=== PATIENT | female | born 1980 | race Caucasian/White ===

== ENCOUNTER 2016-05-12 13:25 | Emergency (ER) | payer MEDICAID ==
[2016-05-12 13:33] VITALS: BMI 26.2
[2016-05-12 13:35] VITALS: RESP 16; TEMP 97.6
--- NOTE | 2016-05-12 13:39 | C.PDOC ---
History Of Present Illness 35F c/o intermittent non-exertional mid-sternal chest pain over her scar for the last 2 days, lasting 20 to 30 minutes at a time. worse w deep breathing and lying flat. same as pain she was seen here for a year ago- found to have flutter at that time and [place] [facility] [place]. had open heart surgery for congenital defect in 2002. denies smoking. no NC in parents. no recent surgery, trauma, immob. she also reports recent cold-like sx. Time Seen by Provider: 05/12/16 13:38 Chief Complaint (Nursing): Chest Pain Past Medical History Vital Signs: Last Vital Signs Temp 97.6 F 05/12/16 13:34 Pulse 52 L 05/12/16 14:23 Resp 16 05/12/16 14:23 BP 110/56 L 05/12/16 14:23 Pulse Ox 98 05/12/16 15:02 - Medical History PMH: Denies: Atrial Fibrillation, Cardia Arrhythmia, CHF, HTN, Hypercholesterolemia, Mitral Valve Prolapse, Peripheral Edema, Chronic Kidney Disease Surgical History: Denies: Pacemaker Family History: Denies: [place] - Social History Hx Alcohol Use: No Hx Substance Use: No - Immunization History Hx Tetanus Toxoid Vaccination: No Hx Influenza Vaccination: No Hx Pneumococcal Vaccination: No Review Of Systems Constitutional: Negative for: Fever, Chills ENT: Positive for: Nose Congestion Cardiovascular: Positive for: Chest Pain. Negative for: Palpitations Respiratory: Positive for: Cough (dry), Shortness of Breath ("only a little"). Negative for: Sputum Gastrointestinal: Negative for: Nausea, Vomiting, Abdominal Pain Genitourinary: Negative for: Dysuria Neurological: Negative for: Weakness, Numbness, Headache Physical Exam - Physical Exam Appears: Well, Non-toxic, No Acute Distress Skin: Warm, Dry Head: Atraumatic Eye(s): bilateral: PERRL Oral Mucosa: Moist Chest: No Subcutaneous Emphysema, Other (reproducible pain w palpation over midline sternal scar) Cardiovascular: Rhythm Regular, No Edema, No Murmur Respiratory: No Decreased Breath Sounds, No Accessory Muscle Use, No Rales, No Rhonchi, No Stridor, No Wheezing Gastrointestinal/Abdominal: Soft, No Tenderness Extremity: No Calf Tenderness, No Swelling Pulses: Left Radial: Normal, Right Radial: Normal Neurological/Psych: Oriented x3, Normal Motor, Normal Sensation, Other (no focal deficits) ED Course And Treatment - Laboratory Results Result Diagrams: 05/12/16 14:17 05/12/16 14:17 O2 Sat by Pulse Oximetry: 98 - Radiology CXR: Interpreted by Me (bibasilar atelectasis. Unchanged from prior: 10/26/14), Viewed By Me Medical Decision Making Medical Decision Making: ecg- sinus fredrick 54, nl axis, nl int, no acute ischemia 1500 the pt says her pain is resolved. I disc her results and advised repeat trop in 3 hours which is often done for low risk chest pain. however she wishes to be dc at this time. she already has an appt w her hr representative this week. will return if worse. Disposition - Disposition Disposition: HOME/ ROUTINE Disposition Time: 15:00 Condition: IMPROVED Additional Instructions: Please follow up with your doctor and hr representative. Return to the ER for any worsening symptoms or for any other concerns. Prescriptions: Naproxen 500 mg PO Q12H PRN #8 tab PRN Reason: Pain, Moderate (4-7) Instructions: Chest Pain (ED) Forms: Gen Discharge Inst French Print Language: SOUTH KOREAN - Clinical Impression Clinical Impression: Chest pain
[2016-05-12 14:22] LABS: BASO # 0.1 K/uL (0.0-0.2); BASO % 1.2 % (0.0-2.0); EOS # 0.4 K/uL (0.0-0.7); EOS % 6.3 % (0.0-4.0); HEMATOCRIT 37.6 % (34.0-47.0); LYMPH # 2.6 K/uL (1.0-4.3); LYMPH % 42.7 % (20.0-40.0); MEAN CELL VOLUME 92.3 fL (81.0-99.0); MEAN CORPUSCULAR HEMOGLOBIN 31.6 pg (27.0-31.0); MEAN CORPUSCULAR HGB CONC 34.3 g/dL (33.0-37.0); MEAN PLATELET VOLUME 9.8 fL (7.2-11.7); MONO # 0.4 K/uL (0.0-0.8); MONO % 6.4 % (0.0-10.0); RED CELL DISTRIBUTION WIDTH 12.9 % (11.5-14.5); WHITE BLOOD COUNT 6.2 K/uL (4.8-10.8)
[2016-05-12 14:24] VITALS: BP 110/56; PULSE 52
[2016-05-12 14:29] LABS: CHLORIDE 101 mmol/L (98-107); SODIUM 141 mmol/L (132-148)
[2016-05-12 14:30] LABS: POTASSIUM 3.9 mmol/L (3.6-5.2)
[2016-05-12 14:32] LABS: ALB/GLOB RATIO 1.4 (1.0-2.1); ALKALINE PHOSPHATASE 48 U/L (38-126); ALT/SGPT 36 U/L (9-52); AST/SGOT 44 U/L (14-36); BILIRUBIN,TOTAL 0.4 mg/dL (0.2-1.3); BLOOD UREA NITROGEN 10 mg/dL (7-17); CARBON DIOXIDE 25 mmol/L (22-30); GFR AFRICAN-AMERICAN > 60; GLUCOSE,RANDOM 96 mg/dL (65-105)
[2016-05-12 14:33] LABS: CALCIUM 8.6 mg/dl (8.6-10.4)
[2016-05-12 14:53] VITALS: O2SAT 98
--- NOTE | 2016-05-12 16:40 | RAD ---
HISTORY: cp COMPARISON: 10/26/2014 TECHNIQUE: Chest PA and lateral FINDINGS: LUNGS: No active pulmonary disease. PLEURA: No significant pleural effusion identified. No pneumothorax apparent. CARDIOVASCULAR: Normal. OSSEOUS STRUCTURES: No significant abnormalities. VISUALIZED UPPER ABDOMEN: Normal. OTHER FINDINGS: None. IMPRESSION: No active disease.
--- NOTE | 2016-05-13 16:26 | CARD ---
APPROVED REPORT EKG Measurement Heart [id number] <Conclusion> Sinus bradycardia Otherwise normal ECG
== END 2016-05-12 15:13 | disposition home or self-care (01) ==
LOC: C.ER 13:25
DX: R07.9 Chest pain, unspecified (principal)
CPT/HCPCS: 71020; 80053; 84484; 85025; 85378; 93005; 96374; 99284; J1885

== ENCOUNTER 2017-09-14 00:30 | Emergency (ER) | payer MEDICAID ==
[2017-09-14 00:30] VITALS: BMI 26.2
[2017-09-14] MEDS ORDERED: Aspirin 325 mg EC Tablets PO STA (00:47)
--- NOTE | 2017-09-14 00:47 | C.PDOC ---
History Of Present Illness 36 year old female presents to emergency department with complaints of left chest pain for the last three days radiating up to her left shoulder and down her left arm. She denies any fever or chills. Pain is reproducible on palpation Time Seen by Provider: 09/14/17 00:47 Chief Complaint (Nursing): Chest Pain History Per: Patient History/Exam Limitations: no limitations Onset/Duration Of Symptoms: Days (3) Current Symptoms Are (Timing): Still Present Severity: Mild Pain Scale Rating Of: 3 Quality: Dull, Aching Modifying Factors: None Exacerbating Factors: None Alleviating Factors: None Recent travel outside of the [place]: No Additional History Per: Patient Past Medical History Reviewed: Historical Data, Nursing Documentation, Vital Signs Vital Signs: Last Vital Signs Temp 97.6 F 09/14/17 00:52 Pulse 55 L 09/14/17 02:22 Resp 16 09/14/17 02:22 BP 99/62 L 09/14/17 02:22 Pulse Ox 98 09/14/17 02:22 - Medical History PMH: Cardia Arrhythmia, HTN, Hyperlipidemia Denies: Atrial Fibrillation, CHF, Hypercholesterolemia, Mitral Valve Prolapse , Peripheral Edema, Chronic Kidney Disease Surgical History: No Surg Hx Denies: Pacemaker Family History: States: No Known Family Hx Denies: [place] - Social History Hx Alcohol Use: No Hx Substance Use: No - Immunization History Hx Tetanus Toxoid Vaccination: No Hx Influenza Vaccination: No Hx Pneumococcal Vaccination: No Review Of Systems Constitutional: Negative for: Fever, Chills Eyes: Negative for: Vision Change ENT: Negative for: Throat Pain Cardiovascular: Positive for: Chest Pain Respiratory: Negative for: Shortness of Breath Gastrointestinal: Negative for: Nausea Genitourinary: Negative for: Dysuria Musculoskeletal: Positive for: Shoulder Pain (left), Arm Pain (left) Skin: Negative for: Rash Neurological: Negative for: Weakness Psych: Negative for: Anxiety Physical Exam - Physical Exam Appears: Non-toxic, No Acute Distress Skin: Warm, Dry Head: Normacephalic Eye(s): bilateral: Normal Inspection Oral Mucosa: Moist Throat: No Erythema, No Exudate Neck: Trachea Midline, Supple Chest: Symmetrical, Tenderness (reproducible on palpation) Cardiovascular: Rhythm Regular, No Murmur Respiratory: No Rales, No Rhonchi, No Wheezing Gastrointestinal/Abdominal: Soft, No Tenderness, No Guarding, No Rebound Back: Normal Inspection Extremity: No Tenderness, No Swelling Extremity: Bilateral: Atraumatic Pulses: Left Dorsalis Pedis: Normal, Right Dorsalis Pedis: Normal Neurological/Psych: Oriented x3, Normal Speech, Normal Cognition Gait: Steady ED Course And Treatment - Laboratory Results Result Diagrams: 09/14/17 01:05 09/14/17 01:05 ECG: Interpreted By Me, Viewed By Me ECG Rhythm: Sinus Rhythm (56), Nonspecific Changes O2 Sat by Pulse Oximetry: 97 (RA) Pulse Ox Interpretation: Normal - Radiology CXR: Interpreted by Me, Viewed By Me CXR Interpretation: No: Infiltrates, Fracture, Pnemothorax Progress Note: Plan: EKG. CMP. CBC. Troponin. PTT. Prothrombin Time. Ecotrin 325mg PO. HCG Qualitative Urine. Urinalysis Medical Decision Making Medical Decision Making: I considered the following diagnoses: acute coronary syndrome, pulmonary embolism, lower respiratory infection, aortic dissection/aneurysm, pneumothorax , pericarditis, esophagitis/GERD, zoster and esophageal rupture but found them to be unlikely based on the history, physical exam, and diagnostics. My conclusions regarding the unlikely diagnoses were based on: the absence of significant EKG abnormalities, the lack of suggestive x-ray findings, the absence of significant abnormalities on cardiac monitoring, the absence of asymmetric pulses. Pt is chest pain free and wants to go home Upon provider reevaluation patient is feeling better, is medically stable, and requires no further treatment in the ED at this time. Patient will be discharged home . Counseling was provided and all questions were answered regarding diagnosis and need for follow up with dr esquivel. There is agreement to discharge plan. Return if symptoms persist or worsen. Disposition Counseled Patient/Family Regarding: Studies Performed, Diagnosis - Disposition Referrals: Bairon Esquivel MD [Staff Provider] - Disposition: HOME/ ROUTINE Disposition Time: 00:47 Condition: FAIR Additional Instructions: Por favor regrese si los sntomas se repiten Instructions: Chest Pain (DC), Costochondritis (DC) Forms: [facility] [employer] (Argentine) Print Language: KAZAKH - Clinical Impression Clinical Impression: Chest pain, Costochondral chest pain - Scribe Statement The provider has reviewed the documentation as recorded by the Scribe (Shine Jenkinsqvi) Provider Attestation: All medical record entries made by the Scribe were at my direction and personally dictated by me. I have reviewed the chart and agree that the record accurately reflects my personal performance of the history, physical exam, medical decision making, and the department course for this patient. I have also personally directed, reviewed, and agree with the discharge instructions and disposition.
[2017-09-14 00:53] VITALS: TEMP 97.6
[2017-09-14] MEDS ORDERED: Aspirin 325 mg EC Tablets PO ONE (00:54)
[2017-09-14 01:13] LABS: HCG,QUALITATIVE URINE NEGATIVE (NEGATIVE)
[2017-09-14 01:23] LABS: BASO # 0.1 K/uL (0.0-0.2); BASO % 0.9 % (0.0-2.0); EOS # 0.2 K/uL (0.0-0.7); EOS % 4.2 % (0.0-4.0); HEMOGLOBIN 13.5 g/dL (11.0-16.0); LYMPH # 3.5 K/uL (1.0-4.3); LYMPH % 64.1 % (20.0-40.0); MEAN CELL VOLUME 91.6 fL (81.0-99.0); MEAN CORPUSCULAR HEMOGLOBIN 32.1 pg (27.0-31.0); MEAN PLATELET VOLUME 9.6 fL (7.2-11.7); MONO # 0.4 K/uL (0.0-0.8); MONO % 7.5 % (0.0-10.0); NEUT # 1.3 K/uL (1.8-7.0); NEUT % 23.3 % (50.0-75.0); NRBC % 0.1 % (0.0-2.0); RBC 4.2 Mil/uL (3.80-5.20); RED CELL DISTRIBUTION WIDTH 12.9 % (11.5-14.5); WHITE BLOOD COUNT 5.5 K/uL (4.8-10.8)
[2017-09-14 01:26] LABS: INR 1.2; PROTHROMBIN TIME 13.1 SECONDS (9.7-12.2)
[2017-09-14 01:29] LABS: SQUAMOUS EPITHIAL 4 /hpf (0-5); URINE BILIRUBIN NEGATIVE (NEGATIVE); URINE BLOOD NEGATIVE (NEGATIVE); URINE CLARITY Clear (Clear); URINE COLOR Yellow (YELLOW); URINE GLUCOSE (UA) NORMAL (Normal); URINE LEUKOCYTE ESTERASE TRACE Leu/uL (Negative); URINE PROTEIN NEGATIVE (NEGATIVE)
[2017-09-14 01:30] LABS: ALB/GLOB RATIO 1.6 (1.0-2.1); ALBUMIN 4.5 g/dL (3.5-5.0); ALT/SGPT 45 U/L (9-52); AST/SGOT 38 U/L (14-36); BLOOD UREA NITROGEN 10 mg/dL (7-17); CALCIUM 9.2 mg/dl (8.6-10.4); GFR AFRICAN-AMERICAN > 60; GFR NON-AFRICAN AMERICAN > 60
[2017-09-14 02:22] VITALS: BP 99/62; PULSE 55; RESP 16
[2017-09-14 02:43] VITALS: O2SAT 97
--- NOTE | 2017-09-14 12:58 | RAD ---
Date of service: 09/14/2017 PROCEDURE: CHEST RADIOGRAPH, 1 VIEW HISTORY: chest pain COMPARISON: Comparison is made with 05/12/2016 FINDINGS: LUNGS: No evidence of a new infiltrate or consolidation in the lungs PLEURA: No pneumothorax or pleural fluid seen. CARDIOVASCULAR: Normal. OSSEOUS STRUCTURES: No significant abnormalities. VISUALIZED UPPER ABDOMEN: Normal. OTHER FINDINGS: None. IMPRESSION: No active disease.
--- NOTE | 2017-09-15 19:52 | CARD ---
APPROVED REPORT Date of service: 09/14/2017 EKG Measurement Heart [id number] [place] [id number] <Conclusion> Sinus bradycardia Otherwise normal ECG
== END 2017-09-14 02:51 | disposition home or self-care (01) ==
LOC: C.ER 00:30
DX: R07.89 Other chest pain (principal)
CPT/HCPCS: 36415; 71045; 80053; 81001; 84484; 84703; 85025; 85610; 85730; 93005; 96374; 99285; J1885